=== PATIENT | female | born 1955 | race Caucasian/White ===

== ENCOUNTER 2020-07-14 17:27 | Emergency (ER) | payer BC, OTHER | END 2020-07-14 18:41 | disposition home or self-care (01) | LOC: JVIRT 17:27 | DX: Z20.822 Contact with and (suspected) exposure to COVID-19 (principal) | CPT/HCPCS: C9803; G2251-GT; U0003 ==

== ENCOUNTER 2024-09-29 06:42 | Day surgery (SDC) | payer BC, OTHER ==
[2024-09-21 12:20] VITALS: BMI 28.7
[2024-09-29 09:31] VITALS: TEMP 97.6
[2024-09-29 09:59] VITALS: BP 112/68; PULSE 66; RESP 14
== END 2024-09-29 10:15 | disposition home or self-care (01) ==
LOC: JASU-ENDO 06:42
PROVIDERS: ATTEND Internal Medicine Gastroenterology
PROC: 0DJD8ZZ Inspection of Lower Intestinal Tract, Via Natural or Artificial Opening Endoscopic (ICD-10-PCS; principal; 2024-09-29 09:00)
DX: Z12.11 Encounter for screening for malignant neoplasm of colon (principal); K57.30 Diverticulosis of large intestine without perforation or abscess without bleeding; K64.8 Other hemorrhoids